=== PATIENT | female | born 1990 | race Caucasian/White ===

== ENCOUNTER 2016-09-28 13:23 | Emergency (ER) | payer SELFPAY ==
[2016-09-28] MEDS ORDERED: Cyclobenzaprine TAB* 10 MG PO ONE (15:31)
[2016-09-28] MEDS ORDERED: Ibuprofen TAB* 400 MG PO ONE (15:31)
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
== END 2016-09-28 17:17 | disposition home or self-care (01) ==
LOC: ED 13:23
DX: S16.1XXA Strain of muscle, fascia and tendon at neck level, initial encounter (principal); S09.90XA Unspecified injury of head, initial encounter; S06.0X9A Concussion with loss of consciousness of unspecified duration, initial encounter; S00.33XA Contusion of nose, initial encounter; R51 Headache; V49.9XXA Car occupant (driver) (passenger) injured in unspecified traffic accident, initial encounter; Y93.9 Activity, unspecified; Y92.9 Unspecified place or not applicable
CPT/HCPCS: 70450; 72125; 99281; A9270-GY